=== PATIENT | female | born 1995 | race Caucasian/White ===

== ENCOUNTER 2017-04-15 05:34 | Inpatient (IN) | payer MEDICAID ==
[2017-04-15] VITALS (7 sets, daily range): BP systolic 108–151; BP diastolic 57–86; Ht 152.4 cm; Wt 64.0 kg
[~2017-04-15] VITALS: Ht 152.4 cm; Wt 64.0 kg
--- NOTE | ~2017-04-15 | OP ---
PATIENT NAME: OCTAVIO GUPTA MEDICAL RECORD: [id number] :93 LOCATION:[id number] ADMISSION DATE:04/15/17 SURGEON: JASPER CARNES MD DATE OF OPERATION: 04/15/2017 PREOPERATIVE DIAGNOSES: 1. Term intrauterine at 39 weeks. 2. History of previous section. POSTOPERATIVE DIAGNOSES: 1. Term intrauterine at 39 weeks. 2. History of previous section. PROCEDURE: A repeat low transverse section. SURGEON: Jasper Carnes MD. ESTIMATED BLOOD LOSS: 1000 cc. ANESTHESIA: Regional via spinal. INTRAVENOUS FLUIDS: Per anesthesia records. SPECIMENS: Placenta and cord for gases. FINDINGS: 1. Viable infant, Apgars 9 at 1 and 9 at 5. 2. Placenta delivered manually intact, 3-vessel cord noted. 3. Grossly normal appearing adnexa bilaterally. 4. A densely adherent bladder to lower uterine segment. COMPLICATIONS: None apparent. PROCEDURE: The patient taken to the operating room where spinal anesthesia was achieved without difficulty. The patient prepped and draped in normal sterile fashion in the dorsal supine position. Lopez catheter had been placed and was flowing freely and SCDs were on and functioning normally. At this point, a repeat Pfannenstiel skin incision was made, extended downward to the underlying subcutaneous fat to the level of the fascia, which was then excised in the midline with the scalpel and excised bilaterally using the Garza scissors. The superior and inferior aspects of the fascial incision were then grasped with Paulo clamps times 2, tented upward, and sharply dissected from the underlying rectus muscle using the Bovie cautery and Garza scissors. The rectus muscles were then bluntly in the midline using the Metzenbaum scissors. The peritoneum was identified at the superior aspect of the incision entered sharply using the Metzenbaum scissors. Further dissection of the peritoneum was performed using the Metzenbaum scissors with direct visualization of the bladder. A bladder blade was then placed into the pelvis. Of note, the bladder was found to be densely adherent to the lower uterine segment. A gentle dissection was performed with the Metzenbaum scissors; however, due to bleeding during the dissection attempted a creation of a bladder flap was abandoned. At this point, a low transverse incision was made. The uterine incision was extended superiorly and inferiorly using the Pelosi method. At this point, an Allis clamp was used to break the bag and the 's head was then delivered atraumatically followed by the body. The infant was bulb suctioned upon OPERATIVE REPORT [id number] OCTAVIO GUPTA delivery. The cord was clamped times 2, cut, and the infant was handed to awaiting nursery team. Cord was then obtained for gases and placenta removed manually intact. Uterus was exteriorized, cleared of all clots and debris and vigorously massaged until a good uterine tone was noted. At this point, the uterine incision was repaired with 0 Vicryl in a running locked fashion times 2 with good hemostasis noted. Several areas of oozing were oversewn with 2-0 Vicryl. Posterior cul-de-sac was then thoroughly irrigated and the uterus was placed into the pelvis. Anterior cul-de-sac was then thoroughly irrigated. On the area of the previous bladder dissection was treated with FloSeal and found to be hemostatic. Counts were correct times 2. The fascia was then repaired with 0 loop PDS times 1. The skin was attempted to be repaired in a running subcutaneous fashion; however, the Monocryl suture would not hold in the previous scar and the skin was then repaired with camron. The patient tolerated the procedure well, transferred to postanesthesia recovery stable without incident. TRANSINT:[id number] Voice Confirmation ID: [id number] DOCUMENT ID: [id number] JASPER CARNES MD CC: [id number] DICTATION DATE: 04/16/17819 BOTTOM STAINER: 04/16/17 1635 ADM IN [address] [place] [address]
[2017-04-15] MEDS ORDERED: PRENATAL COMPLE1 TAB PO (06:06)
[2017-04-15 06:36] LABS: HEMOGLOBIN 11.4 g/dL (12-16); MCH 29.5 pg (26.0-34.0); MCHC 33.5 g/dL (31.0-37.0); MCV 88.1 fL (80.0-100.0); MEAN PLATELET VOLUME 10.5 fL (7.4-10.4); RBC 3.86 10x6/uL (4.00-5.40); RDW 13.3 % (11.5-14.5); WBC 10.4 10x3/uL (4.8-10.8)
--- NOTE | 2017-04-15 08:17 | NUR ---
DELIVERY AT 0754 FEMALE BABY TAKEN TO NURSERY CARRIED BY PRINCESS GOMEZ LPN AND ACCOMPAINED BY FATHER BLOOD GASES AND LAB DELIVERED TO NURSERY AND L&D DESK
--- NOTE | 2017-04-15 09:22 | NUR ---
FUNDUS MIDLINE, FIRM AT THE UMBILICUS. LOCHIA MINIMAL.
--- NOTE | 2017-04-15 09:30 | NUR ---
Pt received to room by bed from recovery, she is alert and awake. Rates pain at 4/10 at incision site, she is able to move her feet but still has numbness from her knees up she explains. VSS as charted, reyes cath to bedside drain with 100ml clear urine noted. Fundus firm at u/u with scant bleeding noted. Incision is covered by white bandage, that is clean and dry. IV to right forearm patent and infusing NS with 20units pitocin that is placed on pump per orders. Dilaudid sound designer started and pt demonstrates understanding of use, Tordal also given sivp per orders at this time, see emar. SCD on bilat and pump is turned on. Denies nausea and ask for ice water at this time.
--- NOTE | 2017-04-15 09:45 | NUR ---
Pt able to roll from side to side so that chux and towels under her can be changed, reyes/mitzy care given at this time. Continue to rate pain at 4/10. Ice pack applied to incision site to aid with pain relief. Family at bedside, pt denies any needs. Side rails up x 2.
--- NOTE | 2017-04-15 10:15 | NUR ---
fundus firm at u/u with scant bleeding and no clots noted with massage. pt denies any needs at this time. family members at bedside.
--- NOTE | 2017-04-15 10:45 | NUR ---
fundus firm with massage at u/u with scant bleeding noted, pt tilted to her left side with pillows to back for support. to breast and assistance per nursery nurse. Lopez cath with 200ml clear urine to collection canister. Pt rates her pain at 2/10 and denies any needs.
--- NOTE | 2017-04-15 11:02 | NUR ---
Fundus firm with massage at u/u, light bleeding noted without clots. Sola pad changed and pt able to turn herself to right side, pillows used for support and comfort. Rates pain at 2/10, side rails up x 2 with call light in reach.
--- NOTE | 2017-04-15 11:21 | NUR ---
Padmini Ramirezbenjamin 04/[birth year]/17 S: Patient states this is her 2nd baby, she wasn't able to nurse her daughter because no one was there to help. States she really would like to breastfeed this time. O: Patient sitting up in bed, family and FOB in room. LC walked in room with nursery nurse, who brought in for first feeding. Explained how to hold for feeding, infant should be placed tummy to tummy nose opposite of nipple, gentle support head and allow infant to self -latch. Patient does have flat nipples. Showed how to correctly use a nipple shield, a nipple shield was applied to the right breast. Infant touch the nipples multiply time, she would attempt to latch but stop. did this for about 10 minutes. was position in laid back position and infant latched immediately. Infant latched to the right breast at 10:50. Infant had round cheeks, mouth 140 degrees, sucking in a rocking motion; both mother and appear content. Mother states no discomfort with . Encouraged to continue to allow infant to eat as long as she likes, this will help with establishing her milk supply. Explained breastmilk composition and feeding cues. Breastfeed baby should feed on demand when showing feeding cues. Praised for , showed patient how to verify infant is latched correctly at the breast. The plan for today is to latch infant for every feeding, ask for help as needed with . Supply and demand, what baby takes out her body will make more of. Asked if any questions or concerns, patient declined, will follow up. A: Mother attempting first feeding. P: Latch for every feeding, encouraged exclusively . Johny Franco HADLEY
--- NOTE | 2017-04-15 12:40 | NUR ---
NEW IV BAG OF NS WITH 20UNIT PITOCIN HUNG AND INFUSING PER ORDERS. PT CONTINUE TO DENY ANY NEEDS.
--- NOTE | 2017-04-15 12:45 | NUR ---
CALLED TO ROOM WITH REQUEST TO BE REPOSITIONED AND CHUX/TOWELS CHANGED. SRINIVAS CARE PER PT. PINK AND BLUE UNDERPADS CHANGED, REPOSITOINED TO LEFT SIDE, NEW ICE APPLIED TO INCISION. DENIES ANY OTHER NEEDS AT THIS TIME.
[2017-04-15 13:56] LABS: BASOPHILS 0.1 % (0-2); EOSINOPHILS 0.2 % (0-7); HEMATOCRIT 32.2 % (36.0-48.0); HEMOGLOBIN 10.7 g/dL (12-16); IMMATURE GRANULOCYTES 0.8 % (0-5); LYMPHOCYTES 8.6 % (15-50); MCH 29.3 pg (26.0-34.0); MCHC 33.2 g/dL (31.0-37.0); MCV 88.2 fL (80.0-100.0); MEAN PLATELET VOLUME 10.1 fL (7.4-10.4); NEUTROPHILS 82.3 % (40-80); PLATELET COUNT 123 10x3/uL (130-400); RBC 3.65 10x6/uL (4.00-5.40); RDW 13.3 % (11.5-14.5)
--- NOTE | 2017-04-15 15:01 | NUR ---
CALLED TO ROOM BY PT FRIEND STATING THAT SHE IS GOING TO VOMIT. THIS RN TO ROOM, UPON ENTERING ROOM PT IS ON HER BACK WITH TO BREAST, PT IS COVERED WITH BLANKET FOR PRIVACY AND ROOM TEMP IS NOTED TO BE ON 80 DEGREES. PT FRIEND STATES THAT SHE TURNED TEMP UP SINCE BABY WAS IN THE ROOM. PROVIDED PT WITH COLD WET WASH CLOTH AND SMALL CUP OF SPRITE. WHEN QUESTIONED ABOUT WHAT SHE ATE OF HER LUNCH HER REPLY IS 2-3 BITES OF JELLO. ENCOURAGED HER TO EAT, ALSO REMINDED THAT SHE IS ON A PAIN MED AND THAT WILL CAUSE NAUSEA IF SHE HAS AN EMPTY STOMACH. GIVEN CHOICES OF WHAT SHE CAN HAVE NOW AND PROVIDED WITH POPSICLE PER HER REQUEST.
--- NOTE | 2017-04-15 17:20 | NUR ---
Pt is awake and visiting with friends, infant in crib at bedside. VSS as charted on graphic. Denies nausea at this time and states she is feeling much better. Sola care per rn with towels and chux changed, pt is able lift her bottom up. Moves self up in bed, head of bed raised. New ice pack to incision site. Fundus firm upon massage at u/u, no clot with massage. Pt rates pain at 2/10 and denies any needs. side rails up x 2 with call light in reach.
--- NOTE | 2017-04-15 18:30 | NUR ---
Pt attempting to breastfeed, pt complains of nausea and is sweating due to room temp. Family friend at bedside has adjusted thermostat to 80+degrees, attempt to adjust but unsuccessful. Pt provided with cold wet wash cloth and scd's removed for brief time. Pt rates pain at 1/10. Unable to empty reyes due to family at bedside. Pt denies needs at this time but understands that she can call nursery nurse to help with feeding.
--- NOTE | 2017-04-15 19:18 | NUR ---
PER DR KINCAID PT MAY AMBULATE 12 HOURS POST OP. D/C IV FLUIDS, SL IV, D/C CHAPMAN, AND SHOWER WHEN DESIRED.
--- NOTE | 2017-04-15 19:20 | NUR ---
RCVD PT FROM AM SHIFT. PT SITTING UP IN BED INFANT AT THIS TIME. FOB AT BEDSIDE. PT RATES CURRENT PAIN 3/10 AND TOLERABLE. DENIES DIZZINESS WHEN GOT UP LAST TO VOID. BREATH SOUNDS CLEAR & UNLABORED X2. HR-RRR, PPP, NO EDEMA NOTED TO BLE. FUNDUS FIRM, U/2. SMALL LOCHIA RUBRA NOTED ON PERIPAD, NO CLOTS. PT DENIES NEEDS AT THIS TIME. WILL RETURN @ 2100 WITH PERCOCET 5/325 AND EVALUATE PT FOR DIZZINESS BEFORE MOVING TO ROOM 1257. BED LOW, WHEELS LOCKED, CL IN REACH, SIDE RAILS UP X2.
--- NOTE | 2017-04-15 19:30 | NUR ---
RCVD PT FROM AM SHIFT. PT LYING IN BED, HOB 30 DEGREES, FAMILY AT BEDSIDE HOLDING INFANT AT THIS TIME. PT DROWSY, BUT AWAKENS WHEN SPOKEN TO. PT RATES PAIN 4/10 AT THIS TIME AND TOLERABLE. PIV TO RT FORARM WITH NS WITH 20 U PITOCIN INFUSING @ 125/ML AND ARMORED CAR DRIVER IN PLACE. BREATH SOUNDS CLEAR & UNLABORED X2. PPP, HR-RRR. NO EDEMA NOTED TO BLE, SCD'S IN PLACE AND CONNECTED TO PUMP. PT DENIES NEEDS AT THIS TIME. INFORMED PT SHE MAY GET UP 12 HRS POST OP IF DESIRED PER ORDER, DR KINCAID. PT STATES "I WILL LET YOU KNOW IF I FEEL LIKE GETTING UP." FUNDUS FIRM U/1, ML, SMALL LOCHIA RUBRA NOTED ON TOWEL PLACED AT PERINEUM WITH QUARTER SIZED CLOT NOTED. FRESH LINENS PROVIDED. PT DENIES FURTHER NEEDS AT THIS TIME. BED LOW WHEELS LOCKED, CL IN REACH. SIDE RAILS UP X2.
--- NOTE | 2017-04-15 20:14 | NUR ---
FRESH ICE CAP PLACED AT INCISION SITE. PT DENIES NEEDS AT THIS TIME AND REPORTS SHE DOES NOT WANT TO GET UP AT THIS TIME. SHE FEELS SHE IS TOO TIRED. ADV PT THAT GETTING UP WILL HELP HER HEAL SOONER. PT VERBALIZED UNDERSTANDING WITH STATES "I'LL LET YOU KNOW." FAMILY REMAINS AT BEDSIDE.
--- NOTE | 2017-04-15 21:44 | NUR ---
IVF DC'D. IV SALINE LOCKED.
--- NOTE | 2017-04-15 21:50 | NUR ---
PT REQUESTING PRN PAIN MEDICATION. SEE EMAR FOR COMMAND CENTER OFFICER.
--- NOTE | 2017-04-15 22:35 | NUR ---
ROUNDS MADE. PT RATES PAIN 3/10 CURRENTLY AND TOLERABLE. PT JUST FINISHED . PLACED IN OPEN CRIB AND SWADDLED PER THIS RN, HAT PLACED ON INFANT. PIV TO RT FOREARM SL. SWAB CAPS PLACED ON LUMENS. CHAPMAN CATH DC'D WITH CATH TIP IN TACT. PT MARC. WELL. 850 ML YELLOW URINE NOTED IN CHAPMAN BAG. PT WILL PLAN TO GET UP AND AMB WHEN SHE FEELS URGE TO VOID. FRESH ICE WATER PROVIDED PER PT REQUEST. PT DENIES FURTHER NEEDS AT THIS TIME. FOB AND SIBLING REMAIN IN ROOM AT THIS TIME.
--- NOTE | 2017-04-15 23:11 | NUR ---
PT RINGS CL, THIS RN TO BEDSIDE. PT REPORTS NEED TO VOID. PT UP TO BATHROOM WITH MINIMAL ASSISTANCE, STEADY GAIT NOTED. PT VOIDS 600ML IN [facility] AT THIS TIME. PERICARE DONE. PT BACK TO BED. DENIES NEEDS AT THIS TIME. FAMILY REMAINS AT BEDSIDE. WILL CONT TO MONITOR.
[2017-04-16 00:02] VITALS: BP 120/67
--- NOTE | 2017-04-16 00:02 | NUR ---
ROUNDS MADE. VSS. PT . FAMILY REMAINS AT BEDSIDE. PT DENIES NEEDS AT THIS TIME. WILL CONT. TO MONITOR.
--- NOTE | 2017-04-16 00:30 | NUR ---
called to room by pt to take nb to nsy. denies any other needs or concerns. c/l in reach.
--- NOTE | 2017-04-16 02:17 | NUR ---
ROUNDS MADE. PT RESTING ON BACK, HOB 30 DEGREES. PT WOKE UPON THIS RN ENTERING ROOM. PT DENIES NEEDS OR NEED FOR PAIN MEDICATION AT THIS TIME. WILL CONT TO MONITOR.
[2017-04-16 04:17] VITALS: BP 103/55
--- NOTE | 2017-04-16 04:17 | NUR ---
ROUNDS MADE. PT INFANT AT THIS TIME. FAMILY REMAINS ASLEEP ON BEDSIDE COUCH. PT RATES PAIN 2/10. MOTRIN 600MG X1 TAB GIVEN PER PT REQUEST. VSS. PT DENIES FURTHER NEEDS AT THIS TIME.
[2017-04-16 05:39] LABS: BASOPHILS 0.1 % (0-2); EOSINOPHILS 0.4 % (0-7); HEMATOCRIT 32.5 % (36.0-48.0); HEMOGLOBIN 11.4 g/dL (12-16); IMMATURE GRANULOCYTES 0.6 % (0-5); LYMPHOCYTES 9.1 % (15-50); MCH 30.6 pg (26.0-34.0); MCHC 35.1 g/dL (31.0-37.0); MCV 87.4 fL (80.0-100.0); MEAN PLATELET VOLUME 10.3 fL (7.4-10.4); MONOCYTES 6.6 % (2-11); NEUTROPHILS 83.2 % (40-80); PLATELET COUNT 146 10x3/uL (130-400); RBC 3.72 10x6/uL (4.00-5.40); RDW 13.2 % (11.5-14.5); WBC 14.2 10x3/uL (4.8-10.8)
[2017-04-16 07:30] VITALS: BP 111/77
--- NOTE | 2017-04-16 07:30 | NUR ---
Am assessment completed as charted on flowsheet, pt sitting up on side of bed eating regular breakfast without complaints. VSS on graphic. Pt denies clots with voids and states her discharge is very little. Stands at bedside for assessment of incision, Dr Carnes has removed bandage. Meredith in place and incision clean, dry and no reddness noted. Rates pain at incision site at 4/10 and is agreeable to pain medication. IV to r forearm removed intact. Sig other asleep on couch at bedside.
--- NOTE | 2017-04-16 08:15 | NUR ---
Pain med given as charted on emar. large ice water provided along with lemon akiak soda. denies any other needs at this time and will call when she is ready to shower.
[2017-04-16 08:21] LABS: RAPID PLASMA REAGIN Non Reactive (Non Reactive)
--- NOTE | 2017-04-16 09:45 | NUR ---
Rates pain at 1/10, in room and pt visiting with family/friends without needs at this time. Call light with in reach.
--- NOTE | 2017-04-16 09:50 | NUR ---
LE@ 8:30 Padmini Jorge S: Patient states is going good, she is happy that she can breastfeed.. has been feeding about 45 minutes on one side, and doesn't want the other side to next feeding, is that ok? O: Patient lying in bed, easily awaken when opening door, FOB sleeping on sofa, and in nursery. Praised for . Every breastfeed baby can eat differently. Some babies will want both breast with feeding, another may want only one. Nursing times can vary per infant also, this is normal. You may try allowing to eat on one side for about 15-20, remove , burp, and offer other breast. It's important to allow baby to latch for every feeding, allow baby to determine how long she would like to nurse. The more infant is latched this will help with establishing her milk supply. Re-explained how to verify is latched correctly at the breast. Encouraged to continue to feed baby when showing feeding cues. Don t be discouraged. does not come naturally to most moms. Moms need to learn how to help their babies latch-on correctly and babies need to be taught how to suck correctly. This takes time and lots of commitment, like any worthwhile goal in life. Remember, it does get easier. Don t give up! Asked if any questions or concerns, patient declined, thanked , asked if I could turn off bathroom light when leaving, lights turned off. A: Client appears to be doing good with . P: Continue to support exclusively . Johny Esquivel, CLC
--- NOTE | 2017-04-16 11:30 | NUR ---
Pt calls out requesting towels and gown for shower. These are taken to room, pt denies needing any assistance, sig other is in room and pt states understanding of emergency call light in the bathroom.
--- NOTE | 2017-04-16 13:00 | NUR ---
ROUNDS MADE. PT JUST OUT OF SHOWER SITTING ON BED. PT NEEDS AND PAIN ASSESSED. PT REPORTS INCISIONAL PAIN 06/25. REQUEST TO BE MEDICATED W/BOTH MOTRIN AND NORCO AT THIS TIME. MOTRIN 600MG AND NORCO 10/325MG ONE TAB GIVEN. FRESH ICE WATER SERVED AND 4 PKGS OF NATHAN CRACKERS PROVIDED PER PT REQUEST. PT'S MOTHER,SIG OTHER AND OLDER CHILD IN ROOM AT THIS TIME. PT APPEARS TO BE UNDER SOME EMOTION STRESS CAUSED BY HER FAMILY. PT DENIES FURTHER NEEDS AT THIS TIME. SEE EMAR FOR DOC OF MEDS GIVEN.
--- NOTE | 2017-04-16 13:40 | NUR ---
Rates pain at 2/10, offer to change bed linens at this time but she states she has vistors coming, states she will notify nurse when she is ready. Large cup of ice and lemon ely shoshone soda taken to room per pt request.
--- NOTE | 2017-04-16 15:08 | NUR ---
Called to room, pt states that no one ever returned to take her breakfast tray and menu from this am. she already had it marked, faxed to dietary at this time. Explained to pt that if when tray is brought and it was not what she wanted please let nurse know and dietary could be called. No other needs at this time, beside c/o room being unbearablly hot, thermostat set on 75 but is showing room temp to be above 80. Will send a work order and ask that pt call when infant is taken back to nursery.
[2017-04-16 16:00] VITALS: BP 118/61
--- NOTE | 2017-04-16 16:26 | NUR ---
infant taken to N, explained to pt and family that someone would be in to look at her air and if could not be fixed than would transfer to new room. She states her understanding and denies any questions.
--- NOTE | 2017-04-16 18:15 | NUR ---
Pain med given as charted on emar, pt also provided with large cup ice and Dr Pacheco per request. Denies any other needs at this time.
[2017-04-16 19:05] VITALS: BP 112/55
--- NOTE | 2017-04-16 19:05 | NUR ---
RCVD PT FROM AM DIVYA, NICOLE Spain RN. PT SITTING UP IN BED, HOB 45 DEGREES AT THIS TIME. FAMILY AT BEDSIDE VISITING. PT RATES CURRENT PAIN 3/10 IN ABD DESCRIBED CRAMPING. BREATH SOUNDS CLEAR AND UNLABORED X2, HR-RRR, PPP, NO EDEMA NOTED TO BLE. PT REPORTS SMALL LOCHIA RUBRA WHEN VOIDING AND NO CLOTS SINCE EARLY THIS AM. FUNDUS REMAINS FIRM AND U/2, ML. BLI C/D/I. QUESTIONS ON BREAST FEEDING AND NIPPLE SORENESS ANSWERED. PT STATES 'I MIGHT NEED YOU TO COME HELP ME LATCH WITHOUT THE NIPPLE SHIELD LATER.' ADV PT I WOULD DO THE SAME. PT REQUESTS MOTRIN. WILL RETURN WITH SAME. PT DENIES FURTHER NEEDS AT THIS TIME. BED LOW, WHEELS LOCKED, CL IN REACH, SIDE RAILS UP X2.
--- NOTE | 2017-04-16 19:15 | NUR ---
MOTRIN 600MG X1 TAB GIVEN FOR PAIN RATED 3/10 PER PT REQUEST. PILLOW PROVIDED FOR FOB. PT DENIES FURTHER NEEDS AT THIS TIME. WILL CONT TO MONITOR.
--- NOTE | 2017-04-16 20:01 | NUR ---
PAIN REASSESSMENT COMPLETE. PT RATES PAIN 2/10 AND TOLERABLE. PT DENIES FURTHER NEEDS AT THIS TIME.
--- NOTE | 2017-04-16 21:12 | NUR ---
PT SITTING UP IN BED WITH UP IN ARMS. PT'S 4 YEAR OLD DAUGHTER IN ROOM SLEEPING ON BEDSIDE COUCH. PT DENIES NEEDS AT THIS TIME. WILL CONT. TO MONITOR.
--- NOTE | 2017-04-16 22:17 | NUR ---
rounds made. pt denies need for pain meds at this time. nbn to room to assist with at this time. pt denies further needs.
--- NOTE | 2017-04-17 00:48 | NUR ---
ROUNDS MADE. PT RESTING ON BACK, HOB 20 DEGREES. EYES CLOSED, RESP EVEN & UNLABORED, FOB AND OLDER DAUGHTER ASLEEP ON BEDSIDE COUCH. PT LEFT UNDISTURBED AT THIS TIME.
[2017-04-17 02:23] VITALS: BP 115/55
--- NOTE | 2017-04-17 02:23 | NUR ---
PT SITTING UP IN BED . FAMILY REMAINS ASLEEP ON BEDSIDE COUCH. VSS. PT DENIES PAIN OR NEEDS AT THIS TIME. WILL CONT. TO MONITOR.
--- NOTE | 2017-04-17 04:25 | NUR ---
PT RESTING ON BACK, EYES CLOSED, RESP EVEN & UNLABORED. FAMILY REMAINS ASLEEP AT BEDSIDE. PT LEFT UNDISTURBED AT THIS TIME.
--- NOTE | 2017-04-17 08:15 | NUR ---
asleep -not awakened at this time for assessment.
[2017-04-17 09:00] VITALS: BP 112/55
--- NOTE | 2017-04-17 09:00 | NUR ---
AWAKENED FOR ASSESSMENT. FAMILY ASLEEP IN ROOM. VERBAL RESPONSES APPRO TO QUESTIONS. NEGRON AT WILL. RATES PAIN AT INCISION SITE A 4 ON SCALE OF 0-10. STATES WILL TAKE SOME IBUPROFEN AT THIS TIME. ABD SOFT. BOWEL SOUNDS PRESENT. REG BREAKFAST AT BEDSIDE. NURSERY BRINGS IN FOR FEEDING AT THIS TIME.
--- NOTE | 2017-04-17 09:38 | NUR ---
requesting pain medication- states wants norco and ibuprofen. medications given. rates pain a 5 on scale of 0-10.
[2017-04-17] MEDS ORDERED: HYDROCODONE-APA1 TAB PO (10:04)
[2017-04-17] MEDS ORDERED: IBUPROFEN600 MG PO (10:05)
--- NOTE | 2017-04-17 10:45 | NUR ---
t-dap information sheets given- pt request that she receive t-dap vaccine.
--- NOTE | 2017-04-17 11:10 | NUR ---
discharge inst verbal and written given. prescriptions x 2 given along with drug info sheets and pt med rec. pt health summary given, along with pfw discharge inst and post op surgery inst. pt denies questions.
--- NOTE | 2017-04-17 12:15 | NUR ---
pt discharged home with infant. to auto via w/c.
== END 2017-04-17 12:15 | disposition home or self-care (01) | DRG 766 ==
LOC: D.LD 05:34 → D.SDCHOLD 07:30 → D.LD 04-17 12:15
PROVIDERS: ADMIT Obstetrics & Gynecology
PROC: 10D00Z1 Extraction of Products of Conception, Low, Open Approach (ICD-10-PCS; principal; 2017-04-15 07:30)
DX: O99.824 Streptococcus B carrier state complicating childbirth (principal); Z3A.39 39 weeks gestation of pregnancy; Z37.0 Single live birth; O34.219 Maternal care for unspecified type scar from previous cesarean delivery

== ENCOUNTER 2017-05-02 01:00 | Emergency (ER) | payer BC, MEDICAID ==
[2017-04-15 06:07] VITALS: BMI 27.5
[~2017-05-02 01:00] MED LIST: HYDROCODONE-APA1 TAB PO; IBUPROFEN600 MG PO; PRENATAL COMPLE1 TAB PO
== END 2017-05-02 01:50 | disposition home or self-care (01) ==
LOC: D.ER 01:00
DX: N61.0 Mastitis without abscess (principal)